=== PATIENT | female | born 1990 | race Caucasian/White ===

== ENCOUNTER → 2016-06-16 | Outpatient (CLI) | payer BC ==
--- NOTE | 2016-06-16 16:46 | REP ---
Clinical: Pain with recent trauma. Technique: AP, lateral, bilateral oblique and coned-down views of the lumbosacral spine. Findings: There are irregular defects involving the anterior-superior and anterior-inferior endplates at L3 which are somewhat limited in evaluation due to slight angulation. While these findings may represent chronic changes including a limbus vertebra and/or Schmorl's nodes, fracture cannot be excluded given the patient's history. The remainder of the examination is relatively normal. Impression: Irregular defects involving the anterior and superior endplate of L3. Fracture cannot definitively be excluded given the patient's history. CT or MRI should be considered for further investigation. Signed by Mickey Courtney MD 06/16/2016 04:37 P
== END ==
LOC: M ADAMS 16:14
PROVIDERS: ATTEND Physician Assistant Medical
DX: M54.5 Low back pain (principal)

== ENCOUNTER → 2016-12-30 | Outpatient (REF) | payer BC | LOC: M LAB REF 09:59 | PROVIDERS: ATTEND Physician Assistant | DX: J02.9 Acute pharyngitis, unspecified (principal) ==

== ENCOUNTER → 2017-06-05 | Outpatient (CLI) | payer BC ==
[2017-06-05 11:57] LABS: BASO # 0.1 10^3/uL (0.0-0.2); BASO % 0.5 % (0.0-1.0); EOS # 0.3 10^3/uL (0.0-0.50); EOS % 3.5 % (0.0-3.0); HEMATOCRIT 39.2 % (36.0-47.0); HEMOGLOBIN 12.8 g/dl (12.0-16.0); IMMATURE GRANULOCYTE % 0.3 % (0-3.0); LYMPH # 2.5 10^3/uL (1.5-6.5); LYMPH % 26.1 % (24.0-44.0); MEAN CORPUSCULAR HEMOGLOBIN 27.4 pg (27.0-33.0); MEAN CORPUSCULAR HGB CONC 32.7 g/dl (32.0-36.5); MEAN CORPUSCULAR VOLUME 83.9 fl (80.0-96.0); MONO # 0.7 10^3/uL (0.0-0.8); MONO % 7.4 % (0.0-5.0); NEUTROPHILS # 5.9 10^3/uL (1.8-7.7); NEUTROPHILS % 62.2 % (36.0-66.0); PLATELET COUNT, AUTOMATED 327 10^3/uL (150-450); RED BLOOD COUNT 4.67 10^6/uL (4.00-5.40); RED CELL DISTRIBUTION WIDTH 14.1 % (11.5-14.5); WHITE BLOOD COUNT 9.6 10^3/uL (4.0-10.0)
[2017-06-05 12:45] LABS: ALBUMIN 3.6 GM/DL (3.2-5.2); ALBUMIN/GLOBULIN RATIO 1.13 (1.00-1.93); ALKALINE PHOSPHATASE 103 U/L (45-117); ALT/SGPT 19 U/L (12-78); ANION GAP 7 MEQ/L (8-16); AST/SGOT 10 U/L (7-37); BILIRUBIN,TOTAL 0.3 MG/DL (0.2-1.0); BLOOD UREA NITROGEN 15 MG/DL (7-18); CALCIUM LEVEL 8.6 MG/DL (8.5-10.1); CARBON DIOXIDE LEVEL 27 MEQ/L (21-32); CHLORIDE LEVEL 106 MEQ/L (98-107); CHOLESTEROL LEVEL 175 MG/DL (<200); CHOLESTEROL RISK RATIO 3.977 (<5); CREATININE FOR GFR 0.59 MG/DL (0.55-1.30); FREE T4 0.89 NG/DL (0.76-1.46); GLOMERULAR FILTRATION RATE > 60.0 (>60); GLUCOSE, FASTING 79 MG/DL (70-100); HDL CHOLESTEROL 44 MG/DL (>40); LDL CHOLESTEROL 110.8 MG/DL (<100); NON-HDL-C 131 MG/DL; POTASSIUM SERUM 4.6 MEQ/L (3.5-5.1); SODIUM LEVEL 140 MEQ/L (136-145); TOTAL PROTEIN 6.8 GM/DL (6.4-8.2); TRIGLYCERIDES LEVEL 101 MG/DL (<150)
== END ==
LOC: M ADAMS 10:36
DX: Z00.00 Encounter for general adult medical examination without abnormal findings (principal); Z68.42 Body mass index [BMI] 45.0-49.9, adult
CPT/HCPCS: 84443

== ENCOUNTER → 2018-11-04 | Outpatient (REF) | payer BC ==
[2018-11-09 16:05] LABS: HPV HYBRID CAPTURE II Negative (Negative)
== END ==
LOC: M LAB REF 13:58
PROVIDERS: ATTEND Advanced Practice Midwife
DX: Z12.4 Encounter for screening for malignant neoplasm of cervix (principal); R87.610 Atypical squamous cells of undetermined significance on cytologic smear of cervix (ASC-US)
CPT/HCPCS: 87624; G0123

== ENCOUNTER → 2018-12-03 | Outpatient (CLI) | payer BC ==
[2018-12-03 13:21] LABS: CHOLESTEROL LEVEL 168 MG/DL (<200); FREE T4 0.93 NG/DL (0.76-1.46); HCG, SERUM QUANTITATIVE < 1.0 MIU/ML; HDL CHOLESTEROL 48 MG/DL (>40); LDL CHOLESTEROL 102 MG/DL (<100); NON-HDL-C 120 MG/DL; TRIGLYCERIDES LEVEL 89 MG/DL (<150)
[2018-12-03 13:25] LABS: HEMOGLOBIN A1c 5.1 %
[2018-12-03 13:34] LABS: ESTRADIOL 35.6 PG/ML
[2018-12-04 15:34] LABS: INSULIN LEVEL 11.3 uIU/mL (2.6-24.9)
[2018-12-06 00:06] LABS: 17 HYDROXY PROGESTERONE 20 ng/dL (.); DEHYDROEPIANDROSTERONE SULFATE 118.2 ug/dL (84.8-378.0)
== END ==
LOC: M LABDRWAD 08:53
PROVIDERS: ATTEND Advanced Practice Midwife
DX: N92.6 Irregular menstruation, unspecified (principal)

== ENCOUNTER → 2018-12-26 | Outpatient (REF) | payer BC | LOC: M LABDRWAD 13:43 | PROVIDERS: ATTEND Advanced Practice Midwife | DX: N92.6 Irregular menstruation, unspecified (principal) ==

== ENCOUNTER → 2019-03-21 | Outpatient (REF) | payer BC ==
[2019-03-25 14:20] LABS: HERPES ZOSTER, VARICELLA IgG >4000 index (Immune >165); HERPES ZOSTER, VARICELLA IgM <0.91 index (0.00-0.90)
== END ==
LOC: M LABDRWAD 19:28
PROVIDERS: ATTEND Physician Assistant Medical
DX: Z02.89 Encounter for other administrative examinations (principal)

== ENCOUNTER → 2020-07-07 | Outpatient (REF) | payer BC ==
[2020-07-07 18:45] LABS: ALBUMIN 3.5 GM/DL (3.2-5.2); ALT/SGPT 22 U/L (12-78); BILIRUBIN,TOTAL 0.3 MG/DL (0.2-1.0); BLOOD UREA NITROGEN 14 MG/DL (7-18); CALCIUM LEVEL 8.9 MG/DL (8.5-10.1); CARBON DIOXIDE LEVEL 25 MEQ/L (21-32); CHLORIDE LEVEL 107 MEQ/L (98-107); CREATININE FOR GFR 0.69 MG/DL (0.55-1.30); FREE T4 1.02 NG/DL (0.76-1.46); GLOMERULAR FILTRATION RATE > 60.0 (>60); GLUCOSE, FASTING 125 MG/DL (70-100); POTASSIUM SERUM 4.2 MEQ/L (3.5-5.1); SODIUM LEVEL 140 MEQ/L (136-145)
== END ==
LOC: M SFHCADAM 14:23
PROVIDERS: ATTEND Family Medicine
DX: F41.9 Anxiety disorder, unspecified (principal)

== ENCOUNTER → 2021-01-13 | Outpatient (CLI) | payer BC | LOC: M PLALAB 08:58 | PROVIDERS: ATTEND Advanced Practice Midwife | DX: N92.0 Excessive and frequent menstruation with regular cycle (principal) ==

== ENCOUNTER → 2021-01-31 | Outpatient (CLI) | payer BC | LOC: M PLALAB 15:31 | PROVIDERS: ATTEND Advanced Practice Midwife | DX: N92.6 Irregular menstruation, unspecified (principal) ==

== ENCOUNTER → 2021-02-14 | Outpatient (REF) | payer BC | LOC: M SFHCWAGY 18:28 | PROVIDERS: ATTEND Advanced Practice Midwife | DX: Z12.4 Encounter for screening for malignant neoplasm of cervix (principal) ==

== ENCOUNTER → 2022-01-11 | Outpatient (CLI) | payer BC, SELFPAY ==
[2022-01-11 20:21] LABS: ESTRADIOL 116.3 PG/ML; PROGESTERONE 22.68 NG/ML
== END ==
LOC: M PLALAB 08:48
PROVIDERS: ATTEND Obstetrics & Gynecology Reproductive Endocrinology
DX: Z31.49 Encounter for other procreative investigation and testing (principal)

== ENCOUNTER → 2022-01-16 | Outpatient (REF) | payer SELFPAY ==
[2022-01-16 14:14] LABS: HCG, SERUM QUANTITATIVE < 1.0 MIU/ML
[2022-01-16 14:48] LABS: PROGESTERONE 6.53 NG/ML
== END ==
LOC: M PLALAB 12:51
PROVIDERS: ATTEND Obstetrics & Gynecology Reproductive Endocrinology
DX: Z32.00 Encounter for pregnancy test, result unknown (principal)

== ENCOUNTER → 2022-08-07 | Outpatient (REF) | payer BC ==
[2022-08-07 16:43] LABS: FREE T4 0.86 NG/DL (0.89-1.76); THYROID STIMULATING HORMONE 1.645 uIU/ML (0.55-4.78)
== END ==
LOC: M SFHCADAM 14:36
PROVIDERS: ATTEND Family Medicine
DX: F41.9 Anxiety disorder, unspecified (principal)

== ENCOUNTER → 2022-10-11 | Outpatient (REF) | payer BC | LOC: M SFHCADAM 11:30 | PROVIDERS: ATTEND Family Medicine | DX: R79.89 Other specified abnormal findings of blood chemistry (principal) ==

== ENCOUNTER → 2023-02-05 | Outpatient (REF) | LOC: M EMP 10:58 | PROVIDERS: ATTEND Family Medicine | DX: Z11.52 Encounter for screening for COVID-19 (principal) ==

== ENCOUNTER → 2023-12-18 | Outpatient (REF) | payer BC ==
[2023-12-18 13:53] LABS: BASO # 0.1 10^3/uL (0.0-0.2); BASO % 0.8 % (0.0-1.0); EOS # 0.4 10^3/uL (0.0-0.5); EOS % 3.6 % (0.0-3.0); HEMATOCRIT 38.9 % (36.0-47.0); HEMOGLOBIN 12.7 g/dl (12.0-15.5); LYMPH # 2.3 10^3/uL (1.5-5.0); LYMPH % 23.6 % (24.0-44.0); MEAN CORPUSCULAR HEMOGLOBIN 27.4 pg (27.0-33.0); MEAN CORPUSCULAR HGB CONC 32.6 g/dl (32.0-36.5); MONO # 0.7 10^3/uL (0.0-0.8); MONO % 6.8 % (2.0-8.0); NEUTROPHILS # 6.3 10^3/uL (1.5-8.5); NEUTROPHILS % 64.8 % (36.0-66.0); PLATELET COUNT, AUTOMATED 311 10^3/uL (150-450); RED BLOOD COUNT 4.63 10^6/uL (4.00-5.40); WHITE BLOOD COUNT 9.7 10^3/uL (4.0-10.0)
[2023-12-18 14:19] LABS: ALBUMIN 3.5 G/DL (3.2-5.2); ALKALINE PHOSPHATASE 107 U/L (46-116); ALT/SGPT 22 U/L (7.0-40); AST/SGOT < 8 U/L (<34); BILIRUBIN,TOTAL 0.4 MG/DL (0.3-1.2); BLOOD UREA NITROGEN 13 MG/DL (9-23); CARBON DIOXIDE LEVEL 26 MMOL/L (20-31); CHLORIDE LEVEL 105 MMOL/L (98-107); CHOLESTEROL LEVEL 183 MG/DL (<200); CREATININE FOR GFR 0.64 MG/DL (0.55-1.30); GLOMERULAR FILTRATION RATE > 60.0 (>60); GLUCOSE, FASTING 77 MG/DL (60-100); HDL CHOLESTEROL 43.5 MG/DL (>40); LDL CHOLESTEROL 117.1 MG/DL (<100); NON-HDL-C 139.5 MG/DL; POTASSIUM SERUM 4.4 MMOL/L (3.5-5.1); SODIUM LEVEL 136 MMOL/L (136-145); TOTAL PROTEIN 6.6 G/DL (5.7-8.2); TRIGLYCERIDES LEVEL 112 MG/DL (<150)
[2023-12-18 14:21] LABS: THYROID STIMULATING HORMONE 1.317 uIU/ML (0.55-4.78)
== END ==
LOC: M SFHCADAM 10:20
PROVIDERS: ATTEND Family Medicine
DX: Z00.00 Encounter for general adult medical examination without abnormal findings (principal)

== ENCOUNTER → 2024-02-11 | Outpatient (CLI) | payer BC | LOC: M LAB 12:55 | PROVIDERS: ATTEND Advanced Practice Midwife | DX: Z32.01 Encounter for pregnancy test, result positive (principal) ==

== ENCOUNTER → 2024-02-13 | Outpatient (CLI) | payer BC ==
[2024-02-13 16:47] LABS: FREE T4 0.91 NG/DL (0.89-1.76)
[2024-02-13 16:48] LABS: THYROID STIMULATING HORMONE 0.822 uIU/ML (0.55-4.78)
== END ==
LOC: M LAB 15:47
PROVIDERS: ATTEND Family Medicine
DX: E03.9 Hypothyroidism, unspecified (principal)

== ENCOUNTER → 2024-02-13 | Outpatient (CLI) | payer BC | LOC: M LAB 15:45 | PROVIDERS: ATTEND Advanced Practice Midwife | DX: Z32.01 Encounter for pregnancy test, result positive (principal) ==

== ENCOUNTER → 2024-02-27 | Outpatient (CLI) | payer BC | LOC: M RAD 15:55 | PROVIDERS: ATTEND Family Medicine | DX: Z34.91 Encounter for supervision of normal pregnancy, unspecified, first trimester (principal) ==

== ENCOUNTER → 2024-04-17 | Outpatient (CLI) | payer BC ==
[2024-04-17 17:49] LABS: HEMATOCRIT 37.3 % (36.0-47.0); HEMOGLOBIN 12.5 g/dl (12.0-15.5); MEAN CORPUSCULAR HEMOGLOBIN 27.5 pg (27.0-33.0); MEAN CORPUSCULAR HGB CONC 33.5 g/dl (32.0-36.5); MEAN CORPUSCULAR VOLUME 82.2 fl (80.0-96.0); PLATELET COUNT, AUTOMATED 322 10^3/uL (150-450); RED BLOOD COUNT 4.54 10^6/uL (4.00-5.40); WHITE BLOOD COUNT 12.9 10^3/uL (4.0-10.0)
[2024-04-17 18:13] LABS: HEMOGLOBIN A1c 5.1 % (4.0-6.0)
[2024-04-17 18:16] LABS: TOTAL PROTEIN,RANDOM URINE 21.3 MG/DL (0.0-14.0)
[2024-04-17 18:19] LABS: URIC ACID 5.1 MG/DL (3.1-7.8)
[2024-04-17 18:21] LABS: CREATININE,RANDOM URINE 140.4 MG/DL; LDH LACTATE DEHYDROGENASE 153 U/L (120-246)
[2024-04-17 18:22] LABS: ALT/SGPT 16 U/L (7.0-40); AST/SGOT < 8 U/L (<34); BILIRUBIN,TOTAL 0.3 MG/DL (0.3-1.2); CREATININE FOR GFR 0.51 MG/DL (0.55-1.30); GLOMERULAR FILTRATION RATE > 60.0 (>60)
[2024-04-17 18:58] LABS: HIV 1&2 SCREEN NEGATIVE (NEGATIVE)
[2024-04-17 19:06] LABS: HEPATITIS C VIRUS ABY INDEX < 0.02 INDEX (<0.8)
[2024-04-17 20:14] LABS: GC DNA AMPLIFICATION NEGATIVE (NEGATIVE)
== END ==
LOC: M LABDRWAD 14:08
PROVIDERS: ATTEND Nurse Practitioner Family
DX: Z34.01 Encounter for supervision of normal first pregnancy, first trimester (principal)

== ENCOUNTER → 2024-05-05 | Outpatient (CLI) | payer BC | LOC: M LAB 12:24 | PROVIDERS: ATTEND Nurse Practitioner Family | DX: E66.01 Morbid (severe) obesity due to excess calories (principal) ==

== ENCOUNTER → 2024-05-29 | Outpatient (CLI) | payer BC | LOC: M WHC 10:13 | PROVIDERS: ATTEND Nurse Practitioner Family | DX: Z34.80 Encounter for supervision of other normal pregnancy, unspecified trimester (principal) ==

== ENCOUNTER → 2024-06-23 | Outpatient (CLI) | payer BC | LOC: M RAD 15:05 | PROVIDERS: ATTEND Nurse Practitioner Family | DX: Z34.80 Encounter for supervision of other normal pregnancy, unspecified trimester (principal) ==

== ENCOUNTER → 2024-07-25 | Outpatient (CLI) | payer BC ==
[2024-07-25 08:35] LABS: HEMATOCRIT 32.3 % (36.0-47.0); HEMOGLOBIN 10.6 g/dl (12.0-15.5); MEAN CORPUSCULAR HEMOGLOBIN 27.2 pg (27.0-33.0); MEAN CORPUSCULAR HGB CONC 32.8 g/dl (32.0-36.5); PLATELET COUNT, AUTOMATED 287 10^3/uL (150-450); RED BLOOD COUNT 3.89 10^6/uL (4.00-5.40); WHITE BLOOD COUNT 12.9 10^3/uL (4.0-10.0)
[2024-07-25 09:19] LABS: HIV 1&2 SCREEN NEGATIVE (NEGATIVE)
[2024-07-25 09:27] LABS: HEPATITIS C VIRUS ABY INDEX 0.03 INDEX (<0.8)
[2024-07-25 10:14] LABS: GC DNA AMPLIFICATION NEGATIVE (NEGATIVE)
== END ==
LOC: M LAB 07:40
PROVIDERS: ATTEND Specialist
DX: Z34.02 Encounter for supervision of normal first pregnancy, second trimester (principal)

== ENCOUNTER → 2024-07-30 | Outpatient (CLI) | payer BC | LOC: M LAB 07:34 | PROVIDERS: ATTEND Specialist | DX: Z34.02 Encounter for supervision of normal first pregnancy, second trimester (principal) ==

== ENCOUNTER → 2024-09-22 | Outpatient (REF) | payer BC ==
[~2024-09-22] MED LIST: ASPI81TA26 PO; EFFE150C3 PO; LABE200T5 PO; PRENTAB9 PO; TUMS500C PO
== END ==
LOC: M SFHCWAGY 12:48
PROVIDERS: ATTEND Obstetrics & Gynecology
DX: Z36.89 Encounter for other specified antenatal screening (principal)

== ENCOUNTER 2025-01-02 14:16 | Emergency (ER) | payer BC ==
[~2025-01-02] VITALS: Ht 170.2 cm; Wt 142.2 kg
[2025-01-02] MEDS ORDERED: GABA-1171 PO (16:35)
[2025-01-02 16:46] VITALS: BP 133/100; TEMP 97.8; O2SAT 99
[2025-01-03] MEDS ORDERED: PRED20TA PO (14:33)
[2025-01-03] MEDS ORDERED: NEUR300C PO (14:35)
== END 2025-01-02 16:47 | disposition home or self-care (01) ==
LOC: M ED 14:16
DX: K08.89 Other specified disorders of teeth and supporting structures (principal); Z88.1 Allergy status to other antibiotic agents; Z79.899 Other long term (current) drug therapy; Z79.52 Long term (current) use of systemic steroids

== ENCOUNTER 2025-01-03 11:45 | Emergency (ER) | payer BC ==
[~2025-01-03] VITALS: Ht 170.2 cm; Wt 140.5 kg
[~2025-01-03 11:45] MED LIST changes: +GABA-1171 PO
[2025-01-03] MEDS: KETOROLAC 60 MG/2 ML VIAL IM ONE (14:33)
[2025-01-03] MEDS ORDERED: PRED20TA PO (14:33)
[2025-01-03] MEDS: predniSONE 20 MG TAB PO ONE (14:34)
[2025-01-03] MEDS ORDERED: NEUR300C PO (14:35)
[2025-01-03 14:41] VITALS: BP 139/90; TEMP 97; O2SAT 100
== END 2025-01-03 14:43 | disposition home or self-care (01) ==
LOC: M ED 11:45
DX: K08.89 Other specified disorders of teeth and supporting structures (principal); I10 Essential (primary) hypertension; E28.2 Polycystic ovarian syndrome; J45.909 Unspecified asthma, uncomplicated; Z88.8 Allergy status to other drugs, medicaments and biological substances; Z79.52 Long term (current) use of systemic steroids; Z79.899 Other long term (current) drug therapy
CPT/HCPCS: 96372; 99283; J1885; J7512

== ENCOUNTER → 2025-02-16 | Outpatient (REF) ==
[~2025-02-16] MED LIST changes: -LABE200T5 PO; +LABE200T86 PO; +NEUR300C PO; +PRED20TA PO
[2025-02-16 14:51] LABS: SOFIA COVID ANTIGEN NEGATIVE (NEGATIVE)
== END ==
LOC: M EMP 11:28
PROVIDERS: ATTEND Family Medicine
DX: Z01.89 Encounter for other specified special examinations (principal)

== ENCOUNTER → 2025-03-17 | Outpatient (CLI) | payer BC | LOC: M LAB 07:06 | PROVIDERS: ATTEND Nurse Practitioner Family | DX: Z32.01 Encounter for pregnancy test, result positive (principal) ==

== ENCOUNTER → 2025-03-17 | Outpatient (CLI) | payer BC ==
[2025-03-17 07:51] LABS: BASO # 0.1 10^3/uL (0.0-0.2); BASO % 0.9 % (0.0-1.0); EOS # 0.3 10^3/uL (0.0-0.5); EOS % 3.8 % (0.0-3.0); LYMPH # 1.7 10^3/uL (1.5-5.0); LYMPH % 20.6 % (24.0-44.0); MONO # 0.8 10^3/uL (0.0-0.8); MONO % 9.5 % (2.0-8.0); NEUTROPHILS # 5.2 10^3/uL (1.5-8.5); NEUTROPHILS % 65.0 % (36.0-66.0); PLATELET COUNT, AUTOMATED 369 10^3/uL (150-450)
[2025-03-17 08:45] LABS: ALT/SGPT 21 U/L (7.0-40); AST/SGOT 12 U/L (<34); CARBON DIOXIDE LEVEL 25 MMOL/L (20-31); CHLORIDE LEVEL 105 MMOL/L (98-107); CHOLESTEROL LEVEL 148 MG/DL (<200); CHOLESTEROL RISK RATIO 3.32 (<5); CREATININE FOR GFR 0.69 MG/DL (0.55-1.30); GLOMERULAR FILTRATION RATE > 90.0 (>60); LDL CHOLESTEROL 87.7 MG/DL (<100); NON-HDL-C 103.5 MG/DL; POTASSIUM SERUM 3.8 MMOL/L (3.5-5.1); SODIUM LEVEL 140 MMOL/L (136-145); TRIGLYCERIDES LEVEL 79 MG/DL (<150)
[2025-03-17 09:07] LABS: CALCIUM LEVEL 8.9 MG/DL (8.5-10.1)
== END ==
LOC: M LAB 07:04
PROVIDERS: ATTEND Family Medicine
DX: Z00.00 Encounter for general adult medical examination without abnormal findings (principal)